=== PATIENT | male | born 1940 | race Caucasian/White ===

== ENCOUNTER → 2017-04-22 13:13 | Outpatient (CLI) | payer MEDICARE, SELFPAY ==
--- NOTE | 2017-04-22 13:22 | RAD_ITS ---
STUDY: SWALLOWING STUDY REASON FOR EXAM: Male, 76 years old. Dysphagia. TECHNIQUE: The examination was performed with Speech Pathology in attendance. Under fluoroscopic observation, the patient ingested thin barium, thick barium, barium pudding, and barium coated cracker. FLUOROSCOPY TIME: 2:17 minutes/seconds. 2117 fluoroscopic images were obtained. RADIOLOGIST INVOLVEMENT: Radiologist was present and providing direct supervision. COMPARISON: None. FINDINGS: The following was observed during swallowing of the various mixtures of barium: Thin Barium: There was no evidence of aspiration or laryngeal penetration. There is evidence of silent aspiration with ingestion of thin liquids with the chin tuck maneuver. Thick Barium: There was no evidence of aspiration or laryngeal penetration. Barium Pudding: There was no evidence of aspiration or laryngeal penetration. Barium Coated Cracker: There was no evidence of aspiration or laryngeal penetration. RAD/Swallowing Function w/Video IMPRESSION: Status post aspiration of thin liquids with the chin tuck maneuver. Otherwise unremarkable examination. The swallow study findings were discussed with the patient by the speech pathologist at the conclusion of the examination. Please see speech pathology report for more information and recommendations. Electronically Signed: Kirby Martinez MD at 14:08 EST Tel [phone], Service support ,
--- NOTE | 2017-04-22 13:35 | SP.MBSS_ITS ---
PRIMARY / SECONDARY DIAGNOSIS: dysphagia (R13.10) REFERRING PHYSICIAN: Dr. Per Okeefe MD CURRENT DIET: regular textures, thin liquids DENTITION: WFL MENTAL STATUS: impaired RESPIRATORY STATUS: O2 via room air PREVIOUS MODIFIED BARIUM SWALLOW STUDY: none REASON FOR REFERRAL: Patient is a 76 year old male referred for a modified barium swallow (MBS) study to objectively assess the Patients oropharyngeal swallow function under fluoroscopy secondary to reported coughing with thin liquids, primarily thin liquid coffee, with episodes occurring with gradual consistency and intensity. Patients present for study, no medical history present in EMR, with medical history gleaned from Patients report, and medication regimen, likely incomplete. Patients reports frequent falls backwards, with additional reported and observed slowed, somewhat shuffled gait pattern, hypophonia, and lack of vocal inflection during conversation, with obvious and reported memory disturbances. MEDICAL HISTORY: Dementia, type II diabetes mellitus, hypertension, hyperlipidemia, anxiety. STUDY FINDINGS: Patient participated in a Modified Barium Swallow (MBS) study on 04/22/2017. Dr. Martinez was the radiologist present for this evaluation. This study was recorded in the lateral view and images were sent to PACs for storage. The following consistencies were presented to this patient for analysis of oropharyngeal swallow function: thin liquids, nectar thickened liquids, pudding , and a regular textured, Itzel Doone cookie. Results of the MBS are as follows: PENETRATION / ASPIRATION SCALE (WILSON): 1 = does not enter airway 2 = enters airway/above vocal folds/ejected 3 = enters airway/above vocal folds/not ejected 4 = enters airway/contacts vocal folds/ejected 5 = enters airway/contacts vocal folds/not ejected 6 = enters airway/below vocal folds/ejected 7 = enters airway/below vocal folds/not ejected despite effort 8 = enters airway/below vocal folds/no effort VIDEOFLOROSCOPIC SCALE SCORE (WILSON): Grade I = aspiration of material that has penetrated into the laryngeal vestibule, intact cough reflex Grade II = aspiration < 10 % of the bolus, intact cough reflex Grade III = aspiration of < 10 % of the bolus, reduced cough reflex or aspiration of > 10 % of the bolus, intact cough reflex Grade IV = aspiration of > 10 % of the bolus, reduced cough reflex PENETRATION / ASPIRATION SCALE (SCORE) WITH VIDEOFLOROSCOPIC SCALE SCORE: Thin liquid - 5 mL tsp.: 1 Thin liquids via cup (sequential swallows): 1 Thin liquids via cup (single sip): 1 Thin liquids via cup (single sip): 1 Thin liquids via cup (chin tuck): 8 - Grade III [place] thickened liquids via cup (sequential swallows): 1 [place] thickened liquids via cup (sequential swallows): 1 [place] thickened liquids via cup (single sip): 1 Pudding via spoon: 1 Regular textured cookie: 1 Thin liquids via cup (sequential swallows): 1 IMPRESSION: DIAGNOSIS: moderate oropharyngeal dysphagia (R13.12) ORAL PHASE CHARACTERIZED BY: LABIAL SEAL: no labial escape TONGUE CONTROL DURING BOLUS MANIPULATION: intermittent posterior escape of greater than half of bolus with thin liquids; consistent posterior escape of less than half of bolus with thin liquids, intermittently with nectar thickened liquids; intermittent escape to lateral buccal cavity/floor of mouth throughout trials BOLUS PREPARATION / MASTICATION: slow prolonged chewing/mashing with complete recollection BOLUS TRANSPORT / LINGUAL MOTION: mild intermittent repetitive/disorganized tongue motion; overall slowed tongue motion ORAL RESIDUE: residue collection on oral structures PHARYNGEAL PHASE CHARACTERIZED BY: INITIATION OF PHARYNGEAL SWALLOW: bolus head at posterior laryngeal surface of epiglottis at first hyoid excursion during thin liquid trials; bolus head in valleculae at first hyoid excursion across remaining trials SOFT PALATE ELEVATION: no bolus between soft palate and pharyngeal wall LARYNGEAL ELEVATION: partial superior movement of thyroid cartilage/partial approximation of arytenoids cartilage to epiglottic petiole ANTERIOR HYOID EXCURSION: complete anterior movement EPIGLOTTIC MOVEMENT: complete epiglottic inversion LARYNGEAL VESTIBULE CLOSURE AT HEIGHT OF SWALLOW: complete laryngeal vestibule closure with no air/contrast in laryngeal vestibule PHARYNGEAL STRIPPING WAVE: pharyngeal stripping wave present / complete PHARYNGOESOPHAGEAL SEGMENT OPENING: complete distension and complete duration with no obstruction of flow TONGUE BASE RETRACTION: trace column of contrast between tongue base and posterior pharyngeal wall PHARYNGEAL RESIDUE: trace residue within or on pharyngeal structures ESOPHAGEAL PHASE CHARACTERIZED BY: ESOPHAGEAL BOLUS CLEARANCE IN THE UPRIGHT POSITION: complete clearance; esophageal coating EFFECTS OF TREATMENT STRATEGIES ATTEMPTED: Chin tuck posture = ineffective Reduced bolus size = effective Reduced rate of intake = effective DIET TEXTURE RECOMMENDATIONS: Will recommend a regular-soft textured, nectar thickened liquid diet. COMPENSATORY STRATEGIES RECOMMENDED: Reduced bolus volume, reduced rate of intake, no straws, seated upright at 90 degrees during PO intake INTERPRETATION OF RESULTS: Patient presents with moderate oropharyngeal dysphagia (R13.12) likely secondary to progressive neurological disease (dementia vs. other etiology). Oral phase primarily marked by mild mastication inefficiency; suboptimal lingual control with noted mild lingual festinations / lingual rolling pattern resulting in rather consistent premature bolus loss contributing to pre- prandial penetration and subsequent aspiration of thin liquids; with overall general slowing of the oral mechanism during bolus manipulation and transport. Pharyngeal phase primarily marked by delayed pharyngeal swallow onset timing ( mild to moderate) resulting in suboptimal bolus location upon swallow onset contributing to pre-prandial penetration and subsequent aspiration of thin liquids. Safe, PO intake further complicated by the Patients habitual tendency to consume liquids and solids at large volumes and rates, placing the Patient at even higher risk of bolus misdirection and tracheobronchial aspiration. Patient noted to SILENTLY aspirate with thin liquids, with clinical assessment at bedside relying on identification of classic overt signs and symptoms of aspiration unreliable. RECOMMENDATIONS: Although the Patient was able to tolerate thin liquid via cup without execution of chin tuck posture, would suspect overt reactions to thin liquid occur following either lamar aspiration of larger bolus volume or sequential silent aspiration events in keeping with known characteristics of silent aspiration (volume dependent). Would only recommend thin liquid intake if concern with quality of life is appreciated, and as long as the Patients family comprehends potential adverse medical complications associated with aspiration. Would strongly discourage advancement past nectar thickened liquids without completion of a repeat modified barium swallow study due to the presence of aspirate identified that was SILENT in nature. Recommend a repeat modified barium swallow study within 4-6 weeks (if clinically appropriate) to further assess the presence and extent of silent and overt aspiration prior to advancement to thin liquids. Would consider implementation of the [place] Free Water Protocol (FFWP) following Patient and family education ONLY if the Patient has the adequate level of supervision at home. Patient requires intensive skilled speech-language intervention targeting diet texture management ; training and implementation of recommended compensatory strategies; training, implementation, and Patient education regarding implementation of the FFWP if appropriate; and caregiver training targeting meal preparation / thickened liquid preparation. Would consider training and implementation of oropharyngeal strengthening exercises to facilitate improved oropharyngeal strength and coordination, though significant improvement is not likely due to the progressive nature of the Patients diagnosis and suspect cognitive ability to facilitate adequate and consistent completion. Would strongly consider further referral for neurological workup based on reported symptoms provided by the Patients (frequent falls backwards, slowed, somewhat shuffled gait pattern, hypophonia, memory disturbance) in addition to presentation under fluoroscopy (lingual festinations, delayed pharyngeal swallow onset) typically associated with earlier stages of progressive neurological movement disorders (i.e. Parkinsons vs. Parkinsonism) despite absence of tremor. ADDITIONAL COMMENTS/RECOMMENDATIONS: Results and recommendations were discussed with the Patient immediately following MBS completion, with the Patient verbalizing understanding and agreement with all recommendations and education provided. IMAGE COUNT: 2117 G-CODES: SWALLOWING [id number] Current Status: CJ SWALLOWING [id number] Goal Status: CI SWALLOWING [id number] Discharge Status: CJ
== END ==
PROVIDERS: PCP Family Medicine; Visit Provider Family Medicine
DX: R13.10 Dysphagia, unspecified (principal)
CPT/HCPCS: 74230; 92611; G8996; G8997; G8998

== ENCOUNTER 2017-06-25 11:32 | Outpatient (RCR) | payer MEDICARE, SELFPAY ==
--- NOTE | 2017-06-25 14:44 | HP.SP.AD ---
History - History Date of Eval: 06/25/17 Attending Doctor: Dr. Per Okeefe MD Referring Doctor: Dr. Per Okeefe MD Reason for Referral: Dysphagia (R13.12) Medical Diagnosis (from RX): Moderate oropharyngeal dysphagia (R13.12) Date of Onset of Diagnosis: 04/22/2017 Previous speech therapy: No Other Relevant Medical History/Diagnoses/Surgery: Dementia, type II diabetes mellitus, hypertension, hyperlipidemia, anxiety. - Pain Is pain an issue with your current prescribed condition?: No Subjective Oral Motor - Subjective Patient Reports: Drooling Dentures ill fitting: Yes - Comments Comments: Reported mild xerostomia upon waking in addition to occasional diurnal and nocturnal sialorrhea. Mild dysarthria with occasional hypophonia. Ill-fitting dentures with occasional displacement. Otherwise within normal limits. Objective Dysphagia - Administered by Administered by: Self - Thin Liquids Administred via: Cup Laryngeal Elevation: WFL Oral Holding: No Gagging: No Patient Report: Limited ability to report due to cognitive deficits. Comments: Patient is a known silent aspirator, with clinical assessment without objective means providing poor sensitivity. Large bolus volumes with reported tachyphagia concerning for higher risk of aspiration when considering deficits identified under fluoroscopy (oral transit disruptions, impaired pharyngeal swallow onset timing), possibly exacerbating intolerance. - [place] Thickened Liquids Administered via: Cup Symptoms: Throat Clearing, Delayed Laryngeal Elevation: WFL Oral Holding: No Gagging: No Patient Report: Limited ability to report due to cognitive deficits. Comments: Continued large bolus volumes with reported tachyphagia concerning for higher risk of aspiration, throat clearing occurring well after ingestion (over 3-4 minutes), would question association with dysphagia. Further posture adjustments unlikely to result in sufficient intermediate project manager improvement, with the Patients reporting that the Patient has demonstrated a significant difficulty recalling to reduce intake rate or reduce intake volume. - Pureed Laryngeal Elevation: WFL Oral Holding: No Gagging: No - Regular Laryngeal Elevation: WFL Gagging: No - Results Swallowing Within Normal Limits: No Swallowing Diagnosis: Oropharyngeal Phase Dysphagia Additional: Known SILENT aspiration of thin liquids Severity: Moderate Modified Barium Results Hx MBS Report Entered: Yes MBS Results (from prior exam): PRIMARY / SECONDARY DIAGNOSIS: dysphagia (R13.10) REFERRING PHYSICIAN: Dr. Per Okeefe MD CURRENT DIET: regular textures, thin liquids DENTITION: WFL MENTAL STATUS: impaired RESPIRATORY STATUS: O2 via room air PREVIOUS MODIFIED BARIUM SWALLOW STUDY: none REASON FOR REFERRAL: Patient is a 76 year old male referred for a modified barium swallow (MBS) study to objectively assess the Patients oropharyngeal swallow function under fluoroscopy secondary to reported coughing with thin liquids, primarily thin liquid coffee, with episodes occurring with gradual consistency and intensity. Patients present for study, no medical history present in EMR, with medical history gleaned from Patients report, and medication regimen, likely incomplete. Patients reports frequent falls backwards, with additional reported and observed slowed, somewhat shuffled gait pattern, hypophonia, and lack of vocal inflection during conversation, with obvious and reported memory disturbances. MEDICAL HISTORY: Dementia, type II diabetes mellitus, hypertension, hyperlipidemia, anxiety. STUDY FINDINGS: Patient participated in a Modified Barium Swallow (MBS) study on 04/22/2017. Dr. Martinez was the radiologist present for this evaluation. This study was recorded in the lateral view and images were sent to PACs for storage. The following consistencies were presented to this patient for analysis of oropharyngeal swallow function: thin liquids, nectar thickened liquids, pudding, and a regular textured, [employer] cookie. Results of the MBS are as follows: PENETRATION / ASPIRATION SCALE (WILSON): 1 = does not enter airway 2 = enters airway/above vocal folds/ejected 3 = enters airway/above vocal folds/not ejected 4 = enters airway/contacts vocal folds/ejected 5 = enters airway/contacts vocal folds/not ejected 6 = enters airway/below vocal folds/ejected 7 = enters airway/below vocal folds/not ejected despite effort 8 = enters airway/below vocal folds/no effort VIDEOFLOROSCOPIC SCALE SCORE (WILSON): Grade I = aspiration of material that has penetrated into the laryngeal vestibule, intact cough reflex Grade II = aspiration < 10 % of the bolus, intact cough reflex Grade III = aspiration of < 10 % of the bolus, reduced cough reflex or aspiration of > 10 % of the bolus, intact cough reflex Grade IV = aspiration of > 10 % of the bolus, reduced cough reflex PENETRATION / ASPIRATION SCALE (SCORE) WITH VIDEOFLOROSCOPIC SCALE SCORE: Thin liquid - 5 mL tsp.: 1 Thin liquids via cup (sequential swallows): 1 Thin liquids via cup (single sip): 1 Thin liquids via cup (single sip): 1 Thin liquids via cup (chin tuck): 8 - Grade III [place] thickened liquids via cup (sequential swallows): 1 [place] thickened liquids via cup (sequential swallows): 1 [place] thickened liquids via cup (single sip): 1 Pudding via spoon: 1 Regular textured cookie: 1 Thin liquids via cup (sequential swallows): 1 IMPRESSION: DIAGNOSIS: moderate oropharyngeal dysphagia (R13.12) ORAL PHASE CHARACTERIZED BY: LABIAL SEAL: no labial escape TONGUE CONTROL DURING BOLUS MANIPULATION: intermittent posterior escape of greater than half of bolus with thin liquids; consistent posterior escape of less than half of bolus with thin liquids, intermittently with nectar thickened liquids; intermittent escape to lateral buccal cavity/floor of mouth throughout trials BOLUS PREPARATION / MASTICATION: slow prolonged chewing/mashing with complete recollection BOLUS TRANSPORT / LINGUAL MOTION: mild intermittent repetitive/disorganized tongue motion; overall slowed tongue motion ORAL RESIDUE: residue collection on oral structures PHARYNGEAL PHASE CHARACTERIZED BY: INITIATION OF PHARYNGEAL SWALLOW: bolus head at posterior laryngeal surface of epiglottis at first hyoid excursion during thin liquid trials; bolus head in valleculae at first hyoid excursion across remaining trials SOFT PALATE ELEVATION: no bolus between soft palate and pharyngeal wall LARYNGEAL ELEVATION: partial superior movement of thyroid cartilage/partial approximation of arytenoids cartilage to epiglottic petiole ANTERIOR HYOID EXCURSION: complete anterior movement EPIGLOTTIC MOVEMENT: complete epiglottic inversion LARYNGEAL VESTIBULE CLOSURE AT HEIGHT OF SWALLOW: complete laryngeal vestibule closure with no air/contrast in laryngeal vestibule PHARYNGEAL STRIPPING WAVE: pharyngeal stripping wave present / complete PHARYNGOESOPHAGEAL SEGMENT OPENING: complete distension and complete duration with no obstruction of flow TONGUE BASE RETRACTION: trace column of contrast between tongue base and posterior pharyngeal wall PHARYNGEAL RESIDUE: trace residue within or on pharyngeal structures ESOPHAGEAL PHASE CHARACTERIZED BY: ESOPHAGEAL BOLUS CLEARANCE IN THE UPRIGHT POSITION: complete clearance; esophageal coating EFFECTS OF TREATMENT STRATEGIES ATTEMPTED: Chin tuck posture = ineffective Reduced bolus size = effective Reduced rate of intake = effective DIET TEXTURE RECOMMENDATIONS: Will recommend a regular-soft textured, nectar thickened liquid diet. COMPENSATORY STRATEGIES RECOMMENDED: Reduced bolus volume, reduced rate of intake, no straws, seated upright at 90 degrees during PO intake INTERPRETATION OF RESULTS: Patient presents with moderate oropharyngeal dysphagia (R13.12) likely secondary to progressive neurological disease (dementia vs. other etiology). Oral phase primarily marked by mild mastication inefficiency; suboptimal lingual control with noted mild lingual festinations / lingual rolling pattern resulting in rather consistent premature bolus loss contributing to pre-prandial penetration and subsequent aspiration of thin liquids; with overall general slowing of the oral mechanism during bolus manipulation and transport. Pharyngeal phase primarily marked by delayed pharyngeal swallow onset timing (mild to moderate) resulting in suboptimal bolus location upon swallow onset contributing to pre-prandial penetration and subsequent aspiration of thin liquids. Safe, PO intake further complicated by the Patients habitual tendency to consume liquids and solids at large volumes and rates, placing the Patient at even higher risk of bolus misdirection and tracheobronchial aspiration. Patient noted to SILENTLY aspirate with thin liquids, with clinical assessment at bedside relying on identification of classic overt signs and symptoms of aspiration unreliable. RECOMMENDATIONS: Although the Patient was able to tolerate thin liquid via cup without execution of chin tuck posture, would suspect overt reactions to thin liquid occur following either lamar aspiration of larger bolus volume or sequential silent aspiration events in keeping with known characteristics of silent aspiration (volume dependent). Would only recommend thin liquid intake if concern with quality of life is appreciated, and as long as the Patients family comprehends potential adverse medical complications associated with aspiration. Would strongly discourage advancement past nectar thickened liquids without completion of a repeat modified barium swallow study due to the presence of aspirate identified that was SILENT in nature. Recommend a repeat modified barium swallow study within 4-6 weeks (if clinically appropriate) to further assess the presence and extent of silent and overt aspiration prior to advancement to thin liquids. Would consider implementation of the [place] Free Water Protocol (FFWP) following Patient and family education ONLY if the Patient has the adequate level of supervision at home. Patient requires intensive skilled speech-language intervention targeting diet texture management; training and implementation of recommended compensatory strategies; training, implementation, and Patient education regarding implementation of the FFWP if appropriate; and caregiver training targeting meal preparation / thickened liquid preparation. Would consider training and implementation of oropharyngeal strengthening exercises to facilitate improved oropharyngeal strength and coordination, though significant improvement is not likely due to the progressive nature of the Patients diagnosis and suspect cognitive ability to facilitate adequate and consistent completion. Would strongly consider further referral for neurological workup based on reported symptoms provided by the Patients (frequent falls backwards, slowed, somewhat shuffled gait pattern, hypophonia, memory disturbance) in addition to presentation under fluoroscopy (lingual festinations, delayed pharyngeal swallow onset) typically associated with earlier stages of progressive neurological movement disorders (i.e. Parkinsons vs. Parkinsonism) despite absence of tremor. ADDITIONAL COMMENTS/RECOMMENDATIONS: Results and recommendations were discussed with the Patient immediately following MBS completion, with the Patient verbalizing understanding and agreement with all recommendations and education provided. IMAGE COUNT: [id number] G-CODES: SWALLOWING [id number] Current Status: SWALLOWING G8997 Goal Status: SWALLOWING G8998 Discharge Status: Dysphagia Assessment - Swallowing Impairment Contributing Factors to Swallowing Impairment: Reduced Alertness or Attention, Difficulty Following Directions, Impaired Oral-Pharyngeal Transport, Delayed Swallow Initiation Other: Known SILENT aspiration of thin liquids - Impact Impact on Safety & Functioning: Risk for Aspiration, Risk for Inadequate Nutrition/Hydration Comments: Patient considered to be at higher risk of dehydration with recommended liquid viscosities. Patient at higher risk of reduced caloric intake with placement on thickened liquid viscosities (quicker satiety during intake). Patient at higher risk of progressive deterioration in swallow function associated with the progressive nature of the causal etiology (dementia, possible further movement disorder pending workup). Patient at higher risk of pulmonary complications secondary to severity of dysphagia and associated silent aspiration, if aspiration of thicker viscosities occurs, due to ambulatory / mobility concerns, cognitive concerns, and with aspiration of saliva containing either abnormal oral pathologies or food particles within oral cavity (due to suboptimal denture fit) associated with suboptimal oral / denture care. Patient at higher risk of dysphagia exacerbation with concurrent medical complications or iatrogenic factors effecting cognition, higher risk of pulmonary complications associated with aspiration with compromised immune system. - Recommendations Modified Barium Swallow/Cookie Swallow Recommended: No Swallowing Treatment: No - Diet Texture Recommendations Solids Other: Soft Liquids: [place] Thick [place] free water Protocol: No - Safety Other: Reduced bolus volume, reduced rate of intake, no straws, seated upright at 90 degrees during PO intake Plan - Plan Plan: Discussed findings and concerns, with the Patients in agreement that the Patient would likely not benefit from direct intervention targeting strategy training and oropharyngeal strengthening due to the cognitive deficits and overall weak empirical evidence of benefit associated with said intervention methods and the causal etiological factor. Provided direct training regarding preparation of nectar thickened liquids, with the Patients demonstrating competency. Discussed prognostic factors and likely continued deterioration, with education provided regarding overt signs and symptoms of aspiration, with recommendations for a repeat MBS if any changes in tolerance is suspected, or if pulmonary complications possibly associated with dysphagia are appreciated. - Recommendations MBS: No Treatment Warranted: No - Prognosis Prognosis: Fair Education - Patient Instruction Patient Education: Diagnosis, Treatment Plan, Safety Precautions Person Taught: Patient, Significant Other Teaching Method: Discussion Response to teaching: Verbalize understanding
--- NOTE | 2017-06-25 14:48 | HP.SP.AD_ITS ---
History - History Date of Eval: 06/25/17 Attending Doctor: Dr. Per Okeefe MD Referring Doctor: Dr. Per Okeefe MD Reason for Referral: Dysphagia (R13.12) Medical Diagnosis (from RX): Moderate oropharyngeal dysphagia (R13.12) Date of Onset of Diagnosis: 04/22/2017 Previous speech therapy: No Other Relevant Medical History/Diagnoses/Surgery: Dementia, type II diabetes mellitus, hypertension, hyperlipidemia, anxiety. - Pain Is pain an issue with your current prescribed condition?: No Subjective Oral Motor - Subjective Patient Reports: Drooling Dentures ill fitting: Yes - Comments Comments: Reported mild xerostomia upon waking in addition to occasional diurnal and nocturnal sialorrhea. Mild dysarthria with occasional hypophonia. Ill-fitting dentures with occasional displacement. Otherwise within normal limits. Objective Dysphagia - Administered by Administered by: Self - Thin Liquids Administred via: Cup Laryngeal Elevation: WFL Oral Holding: No Gagging: No Patient Report: Limited ability to report due to cognitive deficits. Comments: Patient is a known silent aspirator, with clinical assessment without objective means providing poor sensitivity. Large bolus volumes with reported tachyphagia concerning for higher risk of aspiration when considering deficits identified under fluoroscopy (oral transit disruptions, impaired pharyngeal swallow onset timing), possibly exacerbating intolerance. - H. Rivera Colon Thickened Liquids Administered via: Cup Symptoms: Throat Clearing, Delayed Laryngeal Elevation: WFL Oral Holding: No Gagging: No Patient Report: Limited ability to report due to cognitive deficits. Comments: Continued large bolus volumes with reported tachyphagia concerning for higher risk of aspiration, throat clearing occurring well after ingestion ( over 3-4 minutes), would question association with dysphagia. Further posture adjustments unlikely to result in sufficient director digital sales improvement, with the Patients reporting that the Patient has demonstrated a significant difficulty recalling to reduce intake rate or reduce intake volume. - Pureed Laryngeal Elevation: WFL Oral Holding: No Gagging: No - Regular Laryngeal Elevation: WFL Gagging: No - Results Swallowing Within Normal Limits: No Swallowing Diagnosis: Oropharyngeal Phase Dysphagia Additional: Known SILENT aspiration of thin liquids Severity: Moderate Modified Barium Results Hx MBS Report Entered: Yes MBS Results (from prior exam): PRIMARY / SECONDARY DIAGNOSIS: dysphagia (R13.10) REFERRING PHYSICIAN: Dr. Per Okeefe MD CURRENT DIET: regular textures, thin liquids DENTITION: WFL MENTAL STATUS: impaired RESPIRATORY STATUS: O2 via room air PREVIOUS MODIFIED BARIUM SWALLOW STUDY: none REASON FOR REFERRAL: Patient is a 76 year old male referred for a modified barium swallow (MBS) study to objectively assess the Patients oropharyngeal swallow function under fluoroscopy secondary to reported coughing with thin liquids, primarily thin liquid coffee, with episodes occurring with gradual consistency and intensity. Patients present for study, no medical history present in EMR, with medical history gleaned from Patients report, and medication regimen, likely incomplete. Patients reports frequent falls backwards, with additional reported and observed slowed, somewhat shuffled gait pattern, hypophonia, and lack of vocal inflection during conversation, with obvious and reported memory disturbances. MEDICAL HISTORY: Dementia, type II diabetes mellitus, hypertension, hyperlipidemia, anxiety. STUDY FINDINGS: Patient participated in a Modified Barium Swallow (MBS) study on 04/22/2017. Dr. Martinez was the radiologist present for this evaluation. This study was recorded in the lateral view and images were sent to PACs for storage. The following consistencies were presented to this patient for analysis of oropharyngeal swallow function: thin liquids, nectar thickened liquids, pudding , and a regular textured, Itzel Doone cookie. Results of the MBS are as follows: PENETRATION / ASPIRATION SCALE (WILSON): 1 = does not enter airway 2 = enters airway/above vocal folds/ejected 3 = enters airway/above vocal folds/not ejected 4 = enters airway/contacts vocal folds/ejected 5 = enters airway/contacts vocal folds/not ejected 6 = enters airway/below vocal folds/ejected 7 = enters airway/below vocal folds/not ejected despite effort 8 = enters airway/below vocal folds/no effort VIDEOFLOROSCOPIC SCALE SCORE (WILSON): Grade I = aspiration of material that has penetrated into the laryngeal vestibule, intact cough reflex Grade II = aspiration < 10 % of the bolus, intact cough reflex Grade III = aspiration of < 10 % of the bolus, reduced cough reflex or aspiration of > 10 % of the bolus, intact cough reflex Grade IV = aspiration of > 10 % of the bolus, reduced cough reflex PENETRATION / ASPIRATION SCALE (SCORE) WITH VIDEOFLOROSCOPIC SCALE SCORE: Thin liquid - 5 mL tsp.: 1 Thin liquids via cup (sequential swallows): 1 Thin liquids via cup (single sip): 1 Thin liquids via cup (single sip): 1 Thin liquids via cup (chin tuck): 8 - Grade III H. Rivera Colon thickened liquids via cup (sequential swallows): 1 H. Rivera Colon thickened liquids via cup (sequential swallows): 1 H. Rivera Colon thickened liquids via cup (single sip): 1 Pudding via spoon: 1 Regular textured cookie: 1 Thin liquids via cup (sequential swallows): 1 IMPRESSION: DIAGNOSIS: moderate oropharyngeal dysphagia (R13.12) ORAL PHASE CHARACTERIZED BY: LABIAL SEAL: no labial escape TONGUE CONTROL DURING BOLUS MANIPULATION: intermittent posterior escape of greater than half of bolus with thin liquids; consistent posterior escape of less than half of bolus with thin liquids, intermittently with nectar thickened liquids; intermittent escape to lateral buccal cavity/floor of mouth throughout trials BOLUS PREPARATION / MASTICATION: slow prolonged chewing/mashing with complete recollection BOLUS TRANSPORT / LINGUAL MOTION: mild intermittent repetitive/disorganized tongue motion; overall slowed tongue motion ORAL RESIDUE: residue collection on oral structures PHARYNGEAL PHASE CHARACTERIZED BY: INITIATION OF PHARYNGEAL SWALLOW: bolus head at posterior laryngeal surface of epiglottis at first hyoid excursion during thin liquid trials; bolus head in valleculae at first hyoid excursion across remaining trials SOFT PALATE ELEVATION: no bolus between soft palate and pharyngeal wall LARYNGEAL ELEVATION: partial superior movement of thyroid cartilage/partial approximation of arytenoids cartilage to epiglottic petiole ANTERIOR HYOID EXCURSION: complete anterior movement EPIGLOTTIC MOVEMENT: complete epiglottic inversion LARYNGEAL VESTIBULE CLOSURE AT HEIGHT OF SWALLOW: complete laryngeal vestibule closure with no air/contrast in laryngeal vestibule PHARYNGEAL STRIPPING WAVE: pharyngeal stripping wave present / complete PHARYNGOESOPHAGEAL SEGMENT OPENING: complete distension and complete duration with no obstruction of flow TONGUE BASE RETRACTION: trace column of contrast between tongue base and posterior pharyngeal wall PHARYNGEAL RESIDUE: trace residue within or on pharyngeal structures ESOPHAGEAL PHASE CHARACTERIZED BY: ESOPHAGEAL BOLUS CLEARANCE IN THE UPRIGHT POSITION: complete clearance; esophageal coating EFFECTS OF TREATMENT STRATEGIES ATTEMPTED: Chin tuck posture = ineffective Reduced bolus size = effective Reduced rate of intake = effective DIET TEXTURE RECOMMENDATIONS: Will recommend a regular-soft textured, nectar thickened liquid diet. COMPENSATORY STRATEGIES RECOMMENDED: Reduced bolus volume, reduced rate of intake, no straws, seated upright at 90 degrees during PO intake INTERPRETATION OF RESULTS: Patient presents with moderate oropharyngeal dysphagia (R13.12) likely secondary to progressive neurological disease (dementia vs. other etiology). Oral phase primarily marked by mild mastication inefficiency; suboptimal lingual control with noted mild lingual festinations / lingual rolling pattern resulting in rather consistent premature bolus loss contributing to pre- prandial penetration and subsequent aspiration of thin liquids; with overall general slowing of the oral mechanism during bolus manipulation and transport. Pharyngeal phase primarily marked by delayed pharyngeal swallow onset timing ( mild to moderate) resulting in suboptimal bolus location upon swallow onset contributing to pre-prandial penetration and subsequent aspiration of thin liquids. Safe, PO intake further complicated by the Patients habitual tendency to consume liquids and solids at large volumes and rates, placing the Patient at even higher risk of bolus misdirection and tracheobronchial aspiration. Patient noted to SILENTLY aspirate with thin liquids, with clinical assessment at bedside relying on identification of classic overt signs and symptoms of aspiration unreliable. RECOMMENDATIONS: Although the Patient was able to tolerate thin liquid via cup without execution of chin tuck posture, would suspect overt reactions to thin liquid occur following either lamar aspiration of larger bolus volume or sequential silent aspiration events in keeping with known characteristics of silent aspiration (volume dependent). Would only recommend thin liquid intake if concern with quality of life is appreciated, and as long as the Patients family comprehends potential adverse medical complications associated with aspiration. Would strongly discourage advancement past nectar thickened liquids without completion of a repeat modified barium swallow study due to the presence of aspirate identified that was SILENT in nature. Recommend a repeat modified barium swallow study within 4-6 weeks (if clinically appropriate) to further assess the presence and extent of silent and overt aspiration prior to advancement to thin liquids. Would consider implementation of the Torres Free Water Protocol (FFWP) following Patient and family education ONLY if the Patient has the adequate level of supervision at home. Patient requires intensive skilled speech-language intervention targeting diet texture management ; training and implementation of recommended compensatory strategies; training, implementation, and Patient education regarding implementation of the FFWP if appropriate; and caregiver training targeting meal preparation / thickened liquid preparation. Would consider training and implementation of oropharyngeal strengthening exercises to facilitate improved oropharyngeal strength and coordination, though significant improvement is not likely due to the progressive nature of the Patients diagnosis and suspect cognitive ability to facilitate adequate and consistent completion. Would strongly consider further referral for neurological workup based on reported symptoms provided by the Patients (frequent falls backwards, slowed, somewhat shuffled gait pattern, hypophonia, memory disturbance) in addition to presentation under fluoroscopy (lingual festinations, delayed pharyngeal swallow onset) typically associated with earlier stages of progressive neurological movement disorders (i.e. Parkinsons vs. Parkinsonism) despite absence of tremor. ADDITIONAL COMMENTS/RECOMMENDATIONS: Results and recommendations were discussed with the Patient immediately following MBS completion, with the Patient verbalizing understanding and agreement with all recommendations and education provided. IMAGE COUNT: [id number] G-CODES: SWALLOWING [id number] Current Status: SWALLOWING G8997 Goal Status: SWALLOWING G8998 Discharge Status: Dysphagia Assessment - Swallowing Impairment Contributing Factors to Swallowing Impairment: Reduced Alertness or Attention, Difficulty Following Directions, Impaired Oral-Pharyngeal Transport, Delayed Swallow Initiation Other: Known SILENT aspiration of thin liquids - Impact Impact on Safety & Functioning: Risk for Aspiration, Risk for Inadequate Nutrition/Hydration Comments: Patient considered to be at higher risk of dehydration with recommended liquid viscosities. Patient at higher risk of reduced caloric intake with placement on thickened liquid viscosities (quicker satiety during intake). Patient at higher risk of progressive deterioration in swallow function associated with the progressive nature of the causal etiology (dementia , possible further movement disorder pending workup). Patient at higher risk of pulmonary complications secondary to severity of dysphagia and associated silent aspiration, if aspiration of thicker viscosities occurs, due to ambulatory / mobility concerns, cognitive concerns, and with aspiration of saliva containing either abnormal oral pathologies or food particles within oral cavity (due to suboptimal denture fit) associated with suboptimal oral / denture care. Patient at higher risk of dysphagia exacerbation with concurrent medical complications or iatrogenic factors effecting cognition, higher risk of pulmonary complications associated with aspiration with compromised immune system. - Recommendations Modified Barium Swallow/Cookie Swallow Recommended: No Swallowing Treatment: No - Diet Texture Recommendations Solids Other: Soft Liquids: H. Rivera Colon Thick Torres free water Protocol: No - Safety Other: Reduced bolus volume, reduced rate of intake, no straws, seated upright at 90 degrees during PO intake Plan - Plan Plan: Discussed findings and concerns, with the Patient?s in agreement that the Patient would likely not benefit from direct intervention targeting strategy training and oropharyngeal strengthening due to the cognitive deficits and overall weak empirical evidence of benefit associated with said intervention methods and the causal etiological factor. Provided direct training regarding preparation of nectar thickened liquids, with the Patients demonstrating competency. Discussed prognostic factors and likely continued deterioration, with education provided regarding overt signs and symptoms of aspiration, with recommendations for a repeat MBS if any changes in tolerance is suspected, or if pulmonary complications possibly associated with dysphagia are appreciated. - Recommendations MBS: No Treatment Warranted: No - Prognosis Prognosis: Fair Education - Patient Instruction Patient Education: Diagnosis, Treatment Plan, Safety Precautions Person Taught: Patient, Significant Other Teaching Method: Discussion Response to teaching: Verbalize understanding
== END 2017-06-25 19:00 | disposition home or self-care (01) ==
LOC: SP 11:32
PROVIDERS: PCP Family Medicine; Visit Provider Family Medicine
DX: F03.90 Unspecified dementia, unspecified severity, without behavioral disturbance, psychotic disturbance, mood disturbance, and anxiety (principal)
CPT/HCPCS: 92610

== ENCOUNTER → 2017-08-25 10:03 | Outpatient (CLI) | payer MEDICARE, SELFPAY ==
--- NOTE | 2017-08-25 10:03 | DT_ITS ---
This patient was seen during an EMR downtime August 24, 2017 - August 31, 2017. This patient may have a combination of paper and electronic documentation or all paper documentation. All documentation is viewable within the e-chart portion of [employer] for each patient visit.
[2017-08-31 10:42] LABS: Vitamin B12 290 pg/mL (211-911)
[2017-08-31 17:45] LABS: Hemoglobin A1c 6.1 % (4.2-6.3)
[2017-08-31 20:31] LABS: Thyroid Stim Hormone (TSH) < 0.01 uIU/mL (0.358-3.74)
[2017-08-31 20:32] LABS: CPK Total, Creatine Kinase 102 U/L (39-308)
== END ==
PROVIDERS: PCP Family Medicine; Visit Provider Psychiatry & Neurology Neurology
DX: G62.9 Polyneuropathy, unspecified (principal)
CPT/HCPCS: 36415; 82550; 82607; 82784; 83036; 84165; 84166; 84443; 86038; 86235; 86256; 86334; 86335; 86431

== ENCOUNTER → 2017-09-07 15:14 | Outpatient (CLI) | payer MEDICARE, SELFPAY ==
--- NOTE | 2017-09-07 15:53 | MRI_ITS ---
STUDY: MRI BRAIN WITHOUT CONTRAST REASON FOR EXAM: Male, 76 years old. Falling towards the left TECHNIQUE: Standardized multiplanar fat and water weighted pulse sequences were obtained. COMPARISON: None. FINDINGS: Mild atrophy and periventricular white matter ischemic changes without mass effect or restricted diffusion. Normal bilateral basal ganglia. Normal thalami. There is no extra-axial fluid accumulation. Normal flow voids within the major intracranial circulation suggesting patency by spin echo criteria. Normal sella turcica, pituitary gland, infundibular stalk, optic chiasm and hypothalamus. Normal tectal plate and pineal gland. Subtle foci of signal dropout in the inferior frontal lobes on gradient echo weighted imaging sequences which may be consistent with hemosiderin deposition secondary to old hemorrhagic contusions. Correlate with clinical history recommended. Normal midbrain, jason and medulla. Normal cerebellum. Normal basal cisterns. Normal bilateral temporal bones. Normal bilateral internal auditory canals. No demonstrated orbital abnormality, within the constraints of a routine brain study. Normal visualized paranasal sinuses. Normal calvarium and skull base. Normal visualized soft tissue structures. Normal visualized upper cervical spine. MRI/Brain without Contrast IMPRESSION: Mild atrophy and periventricular white matter ischemic changes. No evidence for acute infarct. Findings which may be consistent with old posttraumatic hemorrhagic contusions however clinical correlation is recommended Electronically Signed: Israel James MD at 17:18 EDT , Service support ,
--- NOTE | 2017-09-07 15:53 | MRI_ITS ---
STUDY: MRI CERVICAL SPINE WITHOUT CONTRAST REASON FOR EXAM: Male, 76 years old. Trauma TECHNIQUE: Standardized fat and water weighted pulse sequences were obtained in the sagittal and axial planes. COMPARISON: None FINDINGS: Normal foramen magnum and brainstem-cervical cord junction. Normal craniovertebral junction. Normal anterior atlantoaxial articulation. Normal odontoid process. Normal cervical lordosis. Normal vertebral bodies and posterior osseous elements. C2-3: Normal endplates. Normal disc height, signal and small central disc protrusion. Mild narrowing of the central canal. Normal intervertebral neural foramina. C3-4: Normal endplates. Normal disc height, signal and tiny left paracentral disc protrusion. Normal central canal and intervertebral neural foramina. C4-5: Normal endplates. Normal disc height, signal and small right paracentral disc protrusion.. Mild narrowing of the central canal and encroachment upon the ventral surface of the cord. Normal bilateral neuroforamina C5-6: Normal endplates. Normal disc height, signal and minor annular bulge. Normal central canal. Mild bilateral neural foraminal encroachment secondary to bony hypertrophy C6-7: Normal endplates. Normal disc height, signal and morphology. Normal central canal and intervertebral neural foramina. C7-T1: Normal endplates. Normal disc height, signal and morphology. Normal central canal and intervertebral neural foramina. Normal cervical cord. Normal visualized soft tissue structures. MRI/Spine Cervical (Routine) IMPRESSION: No evidence for acute fracture or subluxation. Mild multilevel spinal stenosis secondary to disc disease Findings as above Electronically Signed: Israel James MD at 22:18 EDT , Service support ,
--- NOTE | 2017-09-07 15:57 | MRI_ITS ---
STUDY: MRI LUMBAR SPINE WITHOUT CONTRAST REASON FOR EXAM: Male, 76 years old. Frequent falls TECHNIQUE: Standardized fat and water weighted pulse sequences were obtained in the sagittal and axial planes. Images are suboptimal because of motion. COMPARISON: None FINDINGS: There is a first-degree spondylolisthesis of L5 over S1 with no acute fractures or dislocations and no abnormal marrow infiltrative processes. The conus medullaris terminates at T12-L1 T12-L1: Normal endplates. Normal disc height, hydration and morphology. Normal bilateral facet joints. Normal central canal and bilateral lateral recesses. Normal bilateral intervertebral neural foramina. L1-2: Normal endplates. Normal disc height, hydration and morphology. Normal bilateral facet joints. Normal central canal and bilateral lateral recesses. Normal bilateral intervertebral neural foramina. L2-3: Normal endplates. Normal disc height, hydration and morphology. Normal bilateral facet joints. Normal central canal and bilateral lateral recesses. Normal bilateral intervertebral neural foramina. L3-4: Normal endplates. Normal disc height, hydration and morphology. Normal bilateral facet joints. Normal central canal and bilateral lateral recesses. Normal bilateral intervertebral neural foramina. L4-5: There is mild concentric disc bulging with some narrowing of both intervertebral foramina. No focal disc protrusion or extrusion and no central canal stenosis. Mild degenerative changes involving the facet joints. L5-S1:First-degree spondylolisthesis of L5 over S1 with no evidence of spondylolysis. There is no focal disc protrusion or extrusion and no central canal stenosis. There are mild degenerative facet joints. The aorta is normal. There left renal cysts and the suspicion of hydronephrosis on the right. MRI/Spine Lumbar (Routine) IMPRESSION: Mild concentric disc bulging at L4-5 with no focal disc protrusion or extrusion and no central canal stenosis. A mild first-degree spondylolisthesis of L5 over S1 with no spondylolysis. Mild degenerative changes involving the facet joints at L5-S1. Suspicion of right-sided hydronephrosis and benign left renal cysts No acute fractures and no abnormal marrow infiltrative processes Electronically Signed: Yang Stokes, at 0:02 EDT Tel , Service support ,
== END ==
PROVIDERS: PCP Family Medicine; Visit Provider Psychiatry & Neurology Neurology
DX: M43.17 Spondylolisthesis, lumbosacral region (principal); M51.37 Other intervertebral disc degeneration, lumbosacral region; M48.02 Spinal stenosis, cervical region; M62.81 Muscle weakness (generalized); R26.89 Other abnormalities of gait and mobility; R41.3 Other amnesia; R29.2 Abnormal reflex; R29.6 Repeated falls
CPT/HCPCS: 70551; 72141; 72148

== ENCOUNTER → 2017-11-24 07:48 | Outpatient (CLI) | payer MEDICARE, SELFPAY ==
--- NOTE | 2017-11-24 10:10 | NEURO ---
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 He also has a diagnosis of neuropathy. There is no history of diabetes or back pain. Bilateral lower extremity sensory and motor nerve conduction study is performed demonstrating normal sural sensory responses, normal common peroneal motor and tibial motor responses bilaterally, normal common peroneal and tibial F-wave responses bilaterally, and a normal right tibial H reflex. The left tibial H reflex is reduced which is of unclear clinical significance in an of itself. Left lower extremity needle electromyography is performed. Muscles evaluated included the extensor digitorum brevis, abductor halitosis, medial gastrocnemius, anterior tibialis, vastus medialis and vastus lateralis muscles. All muscles demonstrated normal insertional activity with absence of pathologic spontaneous activity. Motor unit potential recruitment pattern and amplitude is normal in all muscles tested. Impression: Normal electrophysiologic study of the lower extremities.
--- NOTE | 2017-11-24 10:13 | NEURO_ITS ---
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 He also has a diagnosis of neuropathy. There is no history of diabetes or back pain. Bilateral lower extremity sensory and motor nerve conduction study is performed demonstrating normal sural sensory responses, normal common peroneal motor and tibial motor responses bilaterally, normal common peroneal and tibial F-wave responses bilaterally, and a normal right tibial H reflex. The left tibial H reflex is reduced which is of unclear clinical significance in an of itself. Left lower extremity needle electromyography is performed. Muscles evaluated included the extensor digitorum brevis, abductor halitosis, medial gastrocnemius , anterior tibialis, vastus medialis and vastus lateralis muscles. All muscles demonstrated normal insertional activity with absence of pathologic spontaneous activity. Motor unit potential recruitment pattern and amplitude is normal in all muscles tested. Impression: Normal electrophysiologic study of the lower extremities.
== END ==
PROVIDERS: PCP Family Medicine; Visit Provider Psychiatry & Neurology Neurology
DX: G62.9 Polyneuropathy, unspecified (principal); R20.2 Paresthesia of skin; R20.0 Anesthesia of skin
CPT/HCPCS: 95886; 95910